=== PATIENT | female | born 1985 | race Caucasian/White ===

== ENCOUNTER → 2019-07-22 14:11 | Outpatient (CLI) | payer OTHER, SELFPAY ==
--- NOTE | 2019-07-22 14:12 | US_ITS ---
PROCEDURE: MM DIG MAMM BI DX W/CAD CLINICAL INDICATION: breast mass Palpable abnormality in the left breast COMPARISON: US BREAST LT COMPLETE from 07/22/2019 TECHNIQUE: Standard CC and MLO images were obtained. R2 CAD reviewed. FINDINGS: Average fibroglandular tissue. No malignant appearing mass or malignant-appearing microcalcification. Specifically, no mammographic abnormality that would correspond to the 2 placed markers in the inferior aspect of the left breast. Left breast ultrasound: At the flava clock region there is a subcutaneous hypoechoic linear area measuring 18 x 2 mm and could represent a subcutaneous abscess/carbuncle the. Please correlate with clinical parameters. No suspicious breast nodules are evident. Small nodes are present in the axilla IMPRESSION: Mammogram is unremarkable. No convincing evidence of malignancy. There is a subcutaneous fluid collection 18 x 2 mm in 5 o'clock region as seen on the ultrasound and could represent a small abscess. Recommend 3 month follow-up ultrasound BI-RAD Category: 2 Benign Finding(s) FOLLOW-UP: 3M 3 Month Follow-up (A letter has been sent to the patient regarding results of the study.) Dictated by: Nik De La Rosa MD 07/27/2019 09:44 Electronically signed by Nik De La Rosa MD in [place] 07/27/2019 09:45
--- NOTE | 2019-07-22 14:17 | US_ITS ---
PROCEDURE: US THYROID CLINICAL INDICATION: enlarged thyroid COMPARISON: No exams were available for comparison FINDINGS: Right lobe: 6.3 x 1.8 x 1.9 cm with homogeneous echogenicity. There is a isoechoic nodule in the lower pole at 15 x 11 mm. There is a thin hypoechoic halo around the nodule. T rads level 3 mildly suspicious. Can be followed. Left lobe: 6 x 2.0 x 2.1 cm. Homogeneous echogenicity. Isthmus: Thickened at 7 mm Additional findings: IMPRESSION: Enlarged thyroid gland with mildly suspicious nodule lower pole on the right. Recommend six-month follow-up Dictated by: Nik De La Rosa MD 07/22/2019 16:59 Electronically signed by Nik De La Rosa MD in [place] 07/22/2019 16:59
== END ==
PROVIDERS: PCP Emergency Medicine; Visit Provider Nurse Practitioner Family
DX: N63.20 Unspecified lump in the left breast, unspecified quadrant (principal); E04.9 Nontoxic goiter, unspecified
CPT/HCPCS: 76536; 76641; 77066

== ENCOUNTER → 2019-08-01 14:26 | Outpatient (CLI) | payer OTHER, SELFPAY ==
[2019-08-01 14:50] LABS: Basophils # 0.1 K/mm3 (0-0.2); Basophils % 1.1 % (0.1-2.0); Eosinophils # 0.3 K/mm3 (0.0-0.4); Eosinophils % 3.8 % (0.1-12.0); Hematocrit 42.7 % (37.0-47.0); Hemoglobin 13.8 g/dL (12.2-16.2); Lymphocytes # 2.2 K/mm3 (0.7-4.5); Mean Corpuscular HGB Conc 32.3 g/dL (31.8-35.4); Mean Corpuscular Hemoglobin 29.2 pg (27.0-31.2); Mean Corpuscular Volume 90.2 fl (81-99); Mean Platelet Volume 8.9 fl (7.4-10.4); Monocytes # 0.5 K/mm3 (0.1-1.0); Monocytes % 5.6 % (1.7-9.3); Neutrophils # 5.1 K/mm3 (1.8-7.8); Neutrophils % 62.6 % (37.0-80.0); Platelet Count 286 K/mm3 (142-424); Red Blood Count 4.73 M/mm3 (4.20-5.40); Red Cell Distribution Width 13.3 % (11.5-17.5); White Blood Count 8.2 K/mm3 (4.8-10.8)
[2019-08-01 16:27] LABS: Alanine Aminotransferase 38 U/L (12-78); Albumin Level 3.7 gm/dL (3.4-5.0); Albumin/Globulin Ratio 1.2 (1.1-1.8); Alkaline Phosphatase 75 U/L (46-116); Aspartate Amino Transferase 26 U/L (15-37); Bilirubin,Total 0.7 mg/dL (0.2-1.0); Blood Urea Nitrogen 12 mg/dL (7-18); Calcium 8.7 mg/dL (8.5-10.1); Carbon Dioxide 25 mmol/L (21.0-32.0); Chloride 105 mmol/L (98-107); Cholesterol 151 mg/dL (140-200); Creatinine,Serum 0.68 mg/dL (0.55-1.02); Estimated Glomerular Filt Rate 100 ml/min (>60); GFR (African American) 121 ML/MIN (>60); Globulin 3.1 gm/dl (1.3-3.2); Glucose 93 mg/dL (74-106); HDL Cholesterol 25 mg/dL (29-89); LDL Cholesterol 76 mg/dL (0-130); Sodium 142 mmol/L (136-145); T4 (Thyroxine) 10.2 ug/dl (4.7-13.3); Thyroid Stimulating Hormone 1.04 uIU/ml (0.358-3.740); Total Protein,Serum 6.8 gm/dL (6.4-8.2); Triglycerides 252 mg/dL (30-200); VLDL Cholesterol 50 mg/dL (0-40)
[2019-08-03 09:35] LABS: Hep A Ab, IgM Negative (Negative); Hepatitis B Core Antibody IgM Negative (Negative); Hepatitis B Surface Antigen Negative (Negative)
[2019-08-03 14:10] LABS: Hepatitis C Antibody <0.1 s/co ratio (0.0-0.9); Vitamin D 25 Hydroxy 11.8 ng/mL (30.0-100.0)
== END ==
PROVIDERS: PCP Nurse Practitioner Family; Visit Provider Nurse Practitioner Family
DX: F41.9 Anxiety disorder, unspecified (principal); E66.9 Obesity, unspecified; R53.83 Other fatigue; Z11.59 Encounter for screening for other viral diseases
CPT/HCPCS: 36415; 80053; 80061; 80074; 82652; 84436; 84443; 85025

== ENCOUNTER → 2019-09-20 15:23 | Outpatient (CLI) | payer OTHER, SELFPAY | PROVIDERS: PCP Nurse Practitioner Family; Visit Provider Otolaryngology | DX: E04.1 Nontoxic single thyroid nodule (principal) ==

== ENCOUNTER → 2019-09-28 17:35 | Outpatient (CLI) | payer OTHER, SELFPAY | PROVIDERS: Visit Provider Nurse Practitioner Family | DX: L98.9 Disorder of the skin and subcutaneous tissue, unspecified (principal) | CPT/HCPCS: 87070; 87077; 87186; 87205 ==

== ENCOUNTER → 2019-10-04 13:00 | Outpatient (CLI) | payer OTHER, SELFPAY ==
--- NOTE | 2019-10-04 13:12 | US_ITS ---
PROCEDURE: US FNA THYROID CLINICAL INDICATION: Dominant solid right thyroid nodule with enlarged thyroid gland COMPARISON: US THYROID from 07/22/2019 FINDINGS: Following obtaining informed consent and time-out procedure under aseptic conditions and local anesthesia with 1 percent buffered lidocaine, 3 passes were made with sonographic guidance with a 21 gauge needle into the solid nodule in the lower pole on the right. The patient tolerated the procedure well without evidence of immediate complications. Cytology: Suspicious for follicular neoplasm IMPRESSION: Uneventful ultrasound-guided fine needle aspiration of right thyroid nodule. 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 Dictated by: Nik De La Rosa MD 10/15/2019 08:03 Electronically signed by Nik De La Rosa MD in [place] 10/15/2019 08:03
== END ==
PROVIDERS: PCP Emergency Medicine; Visit Provider Otolaryngology
DX: E04.1 Nontoxic single thyroid nodule (principal)
CPT/HCPCS: 10005; 76942

== ENCOUNTER → 2019-10-28 08:12 | Outpatient (CLI) | payer OTHER, SELFPAY ==
--- NOTE | 2019-10-28 08:23 | US_ITS ---
PROCEDURE: US BREAST LT COMPLETE CLINICAL INDICATION: abnormal u/s, 3 mth f/u COMPARISON: US BREAST LT COMPLETE from 07/22/2019 FINDINGS: Palpable area once again noted in the lower left breast at the 5-6 o'clock region. This is in the subcutaneous tissues measuring 18 mm in with and 3 mm in thickness. This does contain some low level echoes and could represent complex fluid collection such as a small subcutaneous abscess. Overall, this is not significantly changed There are small nodes in the axilla. Small hyperechoic area noted in the left breast at 12 o'clock at 5 mm and may be due to small lipoma IMPRESSION: Overall no change in the complex collection in the subcutaneous tissues of the lower aspect of the left breast. This could represent a small area of infection/inflammation. Please correlate with clinical parameters Dictated by: Nik De La Rosa MD 11/04/2019 11:14 Electronically signed by Nik De La Rosa MD in [place] 11/04/2019 11:14
== END ==
PROVIDERS: PCP Emergency Medicine; Visit Provider Nurse Practitioner Family
DX: R92.8 Other abnormal and inconclusive findings on diagnostic imaging of breast (principal)
CPT/HCPCS: 76641

== ENCOUNTER → 2019-10-31 14:37 | Outpatient (CLI) | payer OTHER, SELFPAY ==
--- NOTE | 2019-10-31 14:48 | ECG_ITS ---
APPROVED REPORT Exam: Resting ECG HR:70 bpm ECG Measurements Heart Rate 70 AXES LA 142 P 41 QRSd 84 QRS 7 QT 400 T 32 QTc 432 <Conclusion> Normal sinus rhythm Normal ECG Electronically signed by : Sloan Anne, 10/31/2019 18:57:55
[2019-10-31 15:22] LABS: Basophils # 0.1 K/mm3 (0-0.2); Basophils % 1.2 % (0.1-2.0); Eosinophils # 0.3 K/mm3 (0.0-0.4); Eosinophils % 3.6 % (0.1-12.0); Hematocrit 42.7 % (37.0-47.0); Hemoglobin 14.7 g/dL (12.2-16.2); Lymphocytes # 2.2 K/mm3 (0.7-4.5); Lymphocytes % 26.3 % (10-50); Mean Corpuscular HGB Conc 34.3 g/dL (31.8-35.4); Mean Corpuscular Hemoglobin 30.3 pg (27.0-31.2); Mean Corpuscular Volume 88.2 fl (81-99); Monocytes # 0.5 K/mm3 (0.1-1.0); Monocytes % 5.8 % (1.7-9.3); Neutrophils # 5.4 K/mm3 (1.8-7.8); Neutrophils % 63.1 % (37.0-80.0); Platelet Count 284 K/mm3 (142-424); Red Blood Count 4.84 M/mm3 (4.20-5.40); Red Cell Distribution Width 13.1 % (11.5-17.5); White Blood Count 8.5 K/mm3 (4.8-10.8)
[2019-10-31 17:01] LABS: Urine Pregnancy, HCG Qual. Negative (Negative)
== END ==
PROVIDERS: PCP Emergency Medicine; Visit Provider Otolaryngology
DX: Z01.818 Encounter for other preprocedural examination (principal); E04.1 Nontoxic single thyroid nodule
CPT/HCPCS: 36415; 81025; 85025; 93005

== ENCOUNTER 2019-11-03 06:50 | Observation (INO) ==
--- NOTE | 2019-11-03 07:26 | Progress Note ---
[facility] Anesthesia Checklist - Patient Identification Patient Identification: Arm Band, Verbal (Name & ) - Structural Data Admitted From: Home Planned Operative Procedure/s: thyroid Consent for Planned Operative Procedure(s) Verified: Yes Verified Documents: History and Physical - NPO Status Verified Time NPO: 00:00 - Chart Verification Results Verified: CBC, BMP - Additional verifications Patient : No Anesthesia Reactions: No Hx Blood Transfusions: No Blood Transfusion Reaction: No Cephalosporin Allergy: No Previous Colonoscopy: No - Cardiovascular Assessment Heart Sounds: S1 & S2 Pulse Strength: Baseline Pulse Rhythm: Regular Peripheral Edema: No - Airway Assessment C-Spine Mobility Assessed: Yes TMJ Mobility Assessed: Yes Dentition: Good Dentition - Neurological Assessment Level of Consciousness: Awake, Alert, Appropriate Hx Seizures: No Numbness or tingling in extremities: No - Anesthesia Plan Anesthesia Risk discussed: Yes Anesthesia Plan: Verified ASA Class: II Anesthesia Type: General [facility] History I have reviewed the patient's past medical history: Yes Medical History: Reports:: Anxiety, Depression, Gastroesophageal Reflux Disease(GERD) Denies:: Cancer, Diabetes Mellitus Type 1, Diabetes Mellitus Type 2, Internal Pacemaker, MRSA *Have you ever received a pneumonia vaccine?: No *Have you received a flu vaccine this season?: No Other Medical History: Reports: Other Anesthesia experience/problems:: none Other Surgeries: Yes: Colonoscopy, (x 4), EGD. No: Pacemaker Amputation: No Fractures: No - *Social History Smoking Status: Current every day smoker Tobacco Type: cigarettes # Packs/Day (cigarettes): 1 Alcohol Intake: never Substance Use Type: denies use *Occupational Status:: other Housing: apartment Household Members: spouse *Travel in the last 8 weeks: None - Psychiatric History Pschychiatric History:: Reports:: Anxiety, Depression Family Hx:: Cancer, Coronary Artery Disease, Diabetes, Hypertension
--- NOTE | 2019-11-03 11:37 | Progress Note ---
[facility] Anesthesia Record Part I Intake, IV Amount: 2,000 Estimated blood loss (mL): 20 Urine output (mL): 0 (NM) Blood Products used (#): none Blood Pressure: 124/70 SaO2: 94 Pulse Rate: 107 Respiratory Rate: 18 Temperature: 97 F Patient is:: Drowsy, Mask O2, Stable Stable to PACU at:: 11:30
--- NOTE | 2019-11-03 12:59 | Operative Note ---
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 An extended thyroid incision was marked out because of the very obese neck. Skin and subcutaneous tissue and platysma were incised, the strap muscles were identified on each side and divided. The sternomastoid muscles were identified on each side and retracted. There was a very large lump involving the right lobe of the thyroid and extending substernally as well as superiorly to the level of the mandible and deeply into the prevertebral space. Dissection was commenced superiorly and the superior vascular pedicle on the right side was doubly ligated and divided. The right superior parathyroid gland was identified and retained in situ. The middle thyroid vein was then divided as was the inferior thyroid veins and they were all ligated prior to division. The gland extended substernally and using blunt mobilization techniques it was mobilized and brought up into the neck. When that was done the right inferior thyroid artery was identified as well as the right recurrent laryngeal nerve. The nerve was stimulated in a positive fashion on several occasions and followed through to where it entered the cricothyroid membrane of the larynx. Vipin's ligament was then divided and the right thyroid mass was from the trachea. Trachea was moderately displaced to the right but once the mass was mobilized the trachea return to the midline. The isthmus was carried with the right lobe and the specimen was transected along the medial aspect of the left lobe. The left lobe was oversewn with 2-0 Vicryl at the site of resection. 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 The wound was thoroughly irrigated all of the bleeding was stopped blood loss was less than 20 cc. Surgicel snow was placed in the depths of the resection. The strap muscles were repaired with 2-0 Vicryl the subcutaneous layer platysma was repaired with 2-0 Vicryl as well. A 10 mm Sammy-Degroot drain was placed in the subcutaneous layer and hooked to suction. The skin was Dermabonded and a dressing was applied. Patient was sent to recovery in good general condition. Condition: stable Disposition: PACU Complications:: none
--- NOTE | 2019-11-03 14:15 | Pharmacy Consult Notes ---
[facility] Pharmacy VTE Monitoring - Patient Demographics Admission date: 11/03/19 Report Date: 11/03/19 Time: 14:15 Allergies/Adverse Reactions: Patient Allergies promethazine [From [facility]] Allergy (Mild, Verified 10/18/19 14:33) PT REPORTS IT MAKES HER SICK Height: 1.7 m Weight: 108.947 kg - VTE Risk VTE Score: 3 VTE Risk Level: Low Risk - Prophylaxis VTE Prophylaxis Ordered?: Yes Types of VTE Prophylaxis: TEDS Knee High Location of Applied Device: Bilateral Lower Extremeties
--- NOTE | 2019-11-04 08:45 | Progress Note ---
[facility] Anesthesia Record Part II Discharge Time: 13:30 Destination: Medical Surgical Department PACU nurse assessment reviewed?: Yes Patient Condition:: Good Anesthesia Complications:: None Swallowing reflex intact?: Yes Cyanosis?: No Blood Pressure: 118/71 Pulse Rate: 117 Temperature: 98.3 F Mental Status: Alert & Oriented Pain level:: 5 Nausea and/or vomitting:: None Intake, IV Amount: 0 Comments:: RR 16, O2sat 95% on 2 L NC
--- NOTE | 2019-11-04 10:15 | Discharge Summary ---
General - General Admission date:: 11/03/19 Discharge date: 11/04/19 HPI HPI: This patient was admitted on November 03, 2019 after having a total right thyroid lobectomy including substernal portion cervical approach due to a right thyroid neoplasm extending substernally due to atypical cells on fine-needle biopsy. Patient tolerated the surgery well and was admitted overnight for observation. Hospital Course Hospital Course: Patient was stable overnight following a total right thyroid lobectomy including substernal portion cervical approach. Patient pain was tolerated with medication IV and p.o. Patient will be discharged this morning. Drain was removed this a.m. atraumatically. Dressing was reapplied Telfa /Tegaderm. Objective Vital signs: Temp Pulse Resp BP Pulse Ox 98.3 F 117 H 18 118/71 95 11/04/19 08:45 11/04/19 08:45 11/04/19 08:00 11/04/19 08:45 11/04/19 08:00 - *Routine HEENT Exam ENT: Present: mucous membranes moist Comments: Dressing to lower neck thyroid area where right thyroid lobectomy was completed. No bleeding noted. Results Labs on day of discharge: Labs from last 24 hours 11/04/19 08:38 Calcium 9.6 DS: Diagnosis - Discharge Diagnosis (1) Status post thyroidectomy Status: Acute Discharge Plan - Patient Discharge Instructions ACTIVITY: Limited activity DIET: advance to your usual diet - Follow up Plan Follow up with: Jd Lazar MD [Staff Physician] - Unknown provider or service follow up:: 11/10/19 at 1230pm Disposition: Home, Self-Skilled Nursing Medications: Home Medications Medication Instructions Recorded Confirmed Type Ergocalciferol (Vitamin D2) 50,000 unit PO WEEKLY 11/03/19 11/03/19 History [Drisdol] Omeprazole [Omeprazole 20mg Tab] 20 mg PO DAILYP PRN 11/03/19 11/03/19 History Venlafaxine HCl [Venlafaxine HCl 37.5 mg PO DAILY 11/03/19 11/03/19 History ER] Calcium Carbonate/Vitamin D3 500 mg PO BID 14 Days #28 tab 11/04/19 Rx [Oscal +D 500mg Tab] Hydrocod/Acet 5/325 mg [[place] 1 tab PO Q6HP PRN #20 tab 11/04/19 Rx 5/325mg tablet] Levothyroxine Sodium [Synthroid 125 mcg PO DAILYDM #30 tab 11/04/19 Rx 125mcg (0.125mg) tablet] Prescriptions/Medication Reconciliation: New Venlafaxine HCl [Effexor 37.5mg tablet] 37.5 mg PO DAILY tablet Hydrocod/Acet 5/325 mg [[place] 5/325mg tablet] 1 tab PO Q6HP PRN #20 tab PRN Reason: Mild Pain Calcium Carbonate/Vitamin D3 [Oscal +D 500mg Tab] 500 mg PO BID 14 Days #28 tab Levothyroxine Sodium [Synthroid 125mcg (0.125mg) tablet] 125 mcg PO DAILYDM #30 tab Continued Ergocalciferol (Vitamin D2) [Drisdol] 50,000 unit PO WEEKLY Venlafaxine HCl [Venlafaxine HCl ER] 37.5 mg PO DAILY Omeprazole [Omeprazole 20mg Tab] 20 mg PO DAILYP PRN PRN Reason: Heartburn - Problem Reconciliation Problems Reviewed?: Yes
== END 2019-11-04 11:37 | disposition home or self-care (01) ==
LOC: 2ND 06:50 → OR 06:50
PROVIDERS: ADMIT Otolaryngology; ATTEND Otolaryngology
CPT/HCPCS: 82310; 96374; 96375; G0378; J2405

== ENCOUNTER → 2019-12-29 13:32 | Outpatient (CLI) | payer OTHER, SELFPAY ==
[2019-12-29 13:37] LABS: MANUAL DIFFERENTIAL MANUAL DIFFERENTIAL (MANUAL DIFF)
--- NOTE | 2019-12-29 13:44 | XR_ITS ---
PROCEDURE: XR CHEST 2V CLINICAL HISTORY: dysphag Dysphagia COMPARISON: No exams were available for comparison FINDINGS: The cardiomediastinal silhouette and pulmonary vascularity are within normal limits. The lungs are clear without infiltrates, suspicious nodules, or pleural effusions. There is calcified granuloma in the right upper lobe. No acute bony findings. IMPRESSION: No acute findings. Dictated by: Nik De La Rosa MD 12/29/2019 14:21 Electronically signed by Nik De La Rosa MD in [place] 12/29/2019 14:21
[2019-12-29 14:17] LABS: Basophils % 0.5 % (0.1-2.0); Eosinophils # 0.3 K/mm3 (0.0-0.4); Hemoglobin 13.8 g/dL (12.2-16.2); Lymphocytes # 2.3 K/mm3 (0.7-4.5); Lymphocytes % 28.8 % (10-50); Mean Corpuscular HGB Conc 34.5 g/dL (31.8-35.4); Mean Corpuscular Hemoglobin 29.7 pg (27.0-31.2); Monocytes # 0.5 K/mm3 (0.1-1.0); Monocytes % 6.2 % (1.7-9.3); Neutrophils # 4.8 K/mm3 (1.8-7.8); Neutrophils % 60.4 % (37.0-80.0); Platelet Count 266 K/mm3 (142-424); Red Blood Count 4.65 M/mm3 (4.20-5.40); Red Cell Distribution Width 13.2 % (11.5-17.5)
[2019-12-29 14:51] LABS: Free T4 (Free Thyroxine) 1.09 ng/dl (0.78-2.19)
[2019-12-29 15:05] LABS: Thyroid Stimulating Hormone 2.72 uIU/mL (0.465-4.68)
[2019-12-29 18:29] LABS: Eosinophils % 1 % (0-3); Lymphocytes % 37 % (10-50); Monocytes % 6 % (2-9); Neutrophils % 56 % (42-76); Platelet Estimate Normal; RBC Morphology Normal; Total Cells Counted 100
== END ==
PROVIDERS: Visit Provider Otolaryngology
DX: D49.7 Neoplasm of unspecified behavior of endocrine glands and other parts of nervous system (principal); J35.8 Other chronic diseases of tonsils and adenoids; Z98.890 Other specified postprocedural states
CPT/HCPCS: 36415; 71046; 84439; 84443; 85007; 85014; 85018; 85048; 85049

== ENCOUNTER → 2020-01-13 14:45 | Outpatient (CLI) | payer OTHER, SELFPAY ==
--- NOTE | 2020-01-13 14:45 | US_ITS ---
PROCEDURE: US THYROID CLINICAL INDICATION: post thyroidectomy Choking COMPARISON: US THYROID from 07/22/2019 FINDINGS: Right lobe: Prior right thyroidectomy Left lobe: The left lobe measures 4.4 x 2.5 x 1.7 cm. There is a vague area of decreased echogenicity in the mid mid aspect of the left lobe however, no discrete margins are evident. Isthmus: There is heterogeneous echogenicity noted in the region of the isthmus and may be postsurgical changes. Additional findings: IMPRESSION: Prior right thyroidectomy. There is some vague decreased echogenicity in the mid aspect of the left lobe but no discrete margins are apparent. Recommend six-month follow-up to confirm stability. Dictated by: Nik De La Rosa MD 01/13/2020 20:55 Electronically signed by Nik De La Rosa MD in [place] 01/13/2020 20:55
== END ==
PROVIDERS: PCP Emergency Medicine; Visit Provider Otolaryngology
DX: D49.7 Neoplasm of unspecified behavior of endocrine glands and other parts of nervous system (principal); J35.8 Other chronic diseases of tonsils and adenoids; Z98.890 Other specified postprocedural states
CPT/HCPCS: 76536

== ENCOUNTER → 2020-07-09 14:37 | Outpatient (CLI) | payer OTHER, SELFPAY ==
--- NOTE | 2020-07-09 14:37 | XR_ITS ---
PROCEDURE: XR CHEST 2V CLINICAL HISTORY: granuloma of lung COMPARISON: CR XR CHEST 2V from 12/29/2019 FINDINGS: The cardiomediastinal silhouette and pulmonary vascularity are within normal limits. No lobar consolidation or collapse. There is a calcified granuloma in the right upper lobe laterally not significantly changed. Skin fold artifact is present on both sides. No acute bony abnormalities. IMPRESSION: No change with no acute finding Dictated by: Nik De La Rosa MD 07/09/2020 15:51 Nik De La Rosa MD in [place] 07/09/2020 15:51
--- NOTE | 2020-07-09 14:37 | US_ITS ---
PROCEDURE: US THYROID CLINICAL INDICATION: hx thyroidectomy Follow-up left thyroid nodule COMPARISON: US US THYROID from 01/13/2020 FINDINGS: There has been a prior right thyroidectomy. The left lobe is 5 x 1.8 x 2.4 cm. There is heterogeneous echogenicity of the left lobe of the thyroid gland as previously described. No discrete nodule is evident. IMPRESSION: Overall no change status post prior right thyroidectomy with heterogeneous echogenicity of the left lobe without discrete nodule. Dictated by: Nik De La Rosa MD 07/10/2020 06:32 Nik De La Rosa MD in [place] 07/10/2020 06:32
== END ==
PROVIDERS: PCP Emergency Medicine; Visit Provider Otolaryngology
DX: E03.9 Hypothyroidism, unspecified (principal); J84.10 Pulmonary fibrosis, unspecified; Z98.890 Other specified postprocedural states
CPT/HCPCS: 71046; 76536

== ENCOUNTER → 2020-10-05 11:22 | Outpatient (CLI) | payer OTHER, SELFPAY ==
--- NOTE | 2020-10-05 11:27 | XR_ITS ---
PROCEDURE: XR LUMBAR SPINE 2-3V CLINICAL INDICATION: back pain COMPARISON: No exams were available for comparison FINDINGS: No fracture or dislocation. No lytic or blastic change. There is normal mineralization. The disc spaces are well-preserved. No significant degenerative/arthritic changes. No erosive changes evident. Other findings:None. IMPRESSION: Negative lumbar spine Dictated by: Nik De La Rosa MD 10/05/2020 12:11 Nik De La Rosa MD in [place] 10/05/2020 12:11
[2020-10-05 14:11] LABS: Basophils # 0.1 K/mm3 (0-0.2); Basophils % 0.9 % (0.1-2.0); Eosinophils # 0.3 K/mm3 (0.0-0.4); Eosinophils % 3.5 % (0.1-12.0); Hematocrit 43.4 % (37.0-47.0); Hemoglobin 13.9 g/dL (12.2-16.2); Lymphocytes # 2.2 K/mm3 (0.7-4.5); Lymphocytes % 24.5 % (10-50); Mean Corpuscular HGB Conc 32.1 g/dL (31.8-35.4); Mean Corpuscular Hemoglobin 29.2 pg (27.0-31.2); Mean Corpuscular Volume 90.9 fl (81-99); Mean Platelet Volume 9.8 fl (7.4-10.4); Monocytes # 0.5 K/mm3 (0.1-1.0); Monocytes % 5.3 % (1.7-9.3); Neutrophils # 5.9 K/mm3 (1.8-7.8); Neutrophils % 65.8 % (37.0-80.0); Platelet Count 265 K/mm3 (142-424); Red Blood Count 4.77 M/mm3 (4.20-5.40); Red Cell Distribution Width 13.5 % (11.5-17.5)
[2020-10-05 14:18] LABS: Alanine Aminotransferase 30 U/L (12-78); Albumin Level 4.1 g/dl (3.5-5.0); Albumin/Globulin Ratio 1.4 (1.1-1.8); Alkaline Phosphatase 68 U/L (38-126); Anion Gap 12.4 mEq/L (5-15); Aspartate Amino Transferase 27 U/L (14-36); Bilirubin,Total 0.7 mg/dl (0.2-1.3); Blood Urea Nitrogen 10 mg/dl (7-17); Calcium 9.2 mg/dl (8.4-10.2); Carbon Dioxide 26 mmol/L (22.0-30.0); Chloride 106 mmol/L (98-107); Chol/HDL Ratio 5.6 (1-3.5); Cholesterol 135 mg/dl (140-200); Estimated Glomerular Filt Rate 115 ml/min (>60); GFR (African American) 139 ML/MIN (>60); Globulin 2.9 g/dL (1.3-3.2); Glucose 108 mg/dl (74-100); HDL Cholesterol 24 mg/dl (40-60); Potassium 4.4 mmoL/L (3.5-5.1); Sodium 140 mmol/L (136-145); Triglycerides 178 mg/dl (30-150); VLDL Cholesterol 36 mg/dL (0-40)
[2020-10-05 14:29] LABS: Direct LDL Cholesterol 88.86 mg/dL (100-129)
[2020-10-05 14:33] LABS: T4 (Thyroxine) 11.7 ug/dl (5.53-11.0)
[2020-10-05 14:34] LABS: Hemoglobin A1C 5.2 % (4.0-6.0)
[2020-10-05 14:35] LABS: 25-OH Vitamin D, Total < 12.8 ng/mL (30-100)
[2020-10-05 14:47] LABS: Thyroid Stimulating Hormone 1.19 uIU/mL (0.465-4.68)
[2020-10-05 15:06] LABS: Vitamin B12 234 pg/mL (239-931)
[2020-10-08 12:23] LABS: Anti-Centromere B Antibodies <0.2 AI (0.0-0.9); Anti-Jo-1 <0.2 AI (0.0-0.9); Anti-Smith Antibody <0.2 AI (0.0-0.9); Antichromatin Antibodies <0.2 AI (0.0-0.9); Antiscleroderma-70 Antibodies <0.2 AI (0.0-0.9); RNP Antibodies <0.2 AI (0.0-0.9); Sjogren's Anti-SS-A <0.2 AI (0.0-0.9); Sjogren's Anti-SS-B <0.2 AI (0.0-0.9)
[2020-10-08 19:26] LABS: Anti-DNA (DS) Ab Qn 1 IU/mL (0-9)
[2020-10-27 06:39] LABS: APTT 24.1 sec (.); Anti-Cardiolipin Antibody IgG <10 GPL (.); Anti-Cardiolipin Antibody IgM 16 MPL (.); Beta-2 Glycoprotein I Ab, IgA <10 SAU (.); Beta-2 Glycoprotein I Ab, IgG <10 SGU (.); Beta-2 Glycoprotein I Ab, IgM <10 SMU (.); Hexagonal Phase Phospholipid 0 sec (.); Prothrombin Time 10.2 sec (.); Thrombin Time 16.4 sec (.)
== END ==
PROVIDERS: PCP Nurse Practitioner Family; Visit Provider Nurse Practitioner Family
DX: M54.5 Low back pain (principal); G89.29 Other chronic pain; R20.2 Paresthesia of skin; R20.0 Anesthesia of skin; R53.83 Other fatigue; F41.9 Anxiety disorder, unspecified
CPT/HCPCS: 36415; 72100; 80053; 80061; 82306; 82607; 83036; 84436; 84443; 85025; 85597; 85598; 85610; 85613; 85670; 85730; 86146; 86147; 86225; 86235

== ENCOUNTER → 2021-04-02 14:02 | Outpatient (CLI) | payer OTHER, SELFPAY ==
[2021-04-02 15:00] LABS: HCG,Quantitative < 2 mIU/ml (0-5.42)
== END ==
PROVIDERS: Visit Provider Obstetrics & Gynecology
DX: Z34.90 Encounter for supervision of normal pregnancy, unspecified, unspecified trimester (principal)
CPT/HCPCS: 36415; 84702

== ENCOUNTER → 2021-08-26 15:27 | Outpatient (CLI) | payer OTHER, SELFPAY ==
[2021-08-26 15:58] LABS: Basophils # 0.2 K/mm3 (0-0.2); Basophils % 1.8 % (0.1-2.0); Eosinophils # 0.3 K/mm3 (0.0-0.4); Eosinophils % 3.2 % (0.1-12.0); Hematocrit 44.4 % (37.0-47.0); Hemoglobin 14.5 g/dL (12.2-16.2); Lymphocytes # 2.5 K/mm3 (0.7-4.5); Lymphocytes % 25.3 % (10-50); Mean Corpuscular HGB Conc 32.6 g/dL (31.8-35.4); Mean Corpuscular Hemoglobin 29.9 pg (27.0-31.2); Mean Corpuscular Volume 91.7 fl (81-99); Mean Platelet Volume 9.4 fl (7.4-10.4); Monocytes # 0.4 K/mm3 (0.1-1.0); Monocytes % 3.7 % (1.7-9.3); Neutrophils # 6.5 K/mm3 (1.8-7.8); Platelet Count 324 K/mm3 (142-424); Red Blood Count 4.85 M/mm3 (4.20-5.40); Red Cell Distribution Width 13.4 % (11.5-17.5); White Blood Count 9.8 K/mm3 (4.8-10.8)
[2021-08-26 16:44] LABS: Alanine Aminotransferase 52 U/L (12-78); Albumin Level 4.2 g/dl (3.5-5.0); Albumin/Globulin Ratio 1.6 (1.1-1.8); Alkaline Phosphatase 72 U/L (38-126); Aspartate Amino Transferase 38 U/L (14-36); Bilirubin,Total 0.3 mg/dl (0.2-1.3); Blood Urea Nitrogen 11 mg/dl (7-17); Calcium 9.4 mg/dl (8.4-10.2); Carbon Dioxide 24 mmol/L (22.0-30.0); Chloride 103 mmol/L (98-107); Estimated Glomerular Filt Rate 114 ml/min (>60); GFR (African American) 138 ML/MIN (>60); Globulin 2.7 g/dL (1.3-3.2); Glucose 122 mg/dl (74-100); Sodium 138 mmol/L (136-145); Total Protein,Serum 6.9 g/dl (6.3-8.2)
[2021-08-26 17:04] LABS: 25-OH Vitamin D, Total 15.6 ng/mL (30-100)
[2021-08-26 17:05] LABS: T4 (Thyroxine) 9.7 ug/dl (5.53-11.0)
[2021-08-26 17:18] LABS: Thyroid Stimulating Hormone 2.25 uIU/mL (0.465-4.68)
[2021-08-26 20:30] LABS: Hemoglobin A1C 5.3 % (4.0-6.0)
== END ==
PROVIDERS: PCP Nurse Practitioner Family; Visit Provider Nurse Practitioner Family
DX: I49.9 Cardiac arrhythmia, unspecified (principal); E03.9 Hypothyroidism, unspecified; E55.9 Vitamin D deficiency, unspecified; K21.9 Gastro-esophageal reflux disease without esophagitis; Z98.890 Other specified postprocedural states
CPT/HCPCS: 36415; 80053; 82306; 83036; 84436; 84443; 85025; 93225; 93226

== ENCOUNTER → 2021-09-04 13:08 | Outpatient (CLI) | payer OTHER, SELFPAY ==
--- NOTE | 2021-09-04 13:08 | CA_ITS ---
APPROVED REPORT EXAM: Comprehensive 2D, Doppler, and color-flow Echocardiogram Stoper: Ashely Boateng CRT Ht: 5 ft 7 in Wt: 254lbs BSA: 2.24 BP: 135/80 mmHg Indications: Chest Pain, Arrhythmia, Shortness of Breath, Obesity, Palpitations 2D Dimensions LVOT 2.00 cm (M/F) 1.5-2.5 LA Volume 33.50 mL LA Volume Index 15.00 mL/m2 (M/F) 16-34 M-Mode Dimensions RVDd 2.40 cm (0.9-2.6) LA Diam 3.26 cm (1.9-4.0) LVDd 4.47 cm (3.5-5.7) Ao Diam 3.51 cm (2.0-3.7) LVDs 2.90 cm (3.5-5.7) IVSd 1.40 cm (0.6-1.1) PWd 0.64 cm (0.6-1.1) EF (Teich) 64.60% FS 35.10% EDV (Teich) 91.00 mL TAPSE 2.13 (<1.7) ESV (Teich) 32.20 mL LV Diastology E Decel Time 213.00 (160-240 msec) E/A Ratio 0.63 MED E' 8.60 (< 7 cm/sec) MED A' 12.10 cm/s E'/MED E' Ratio 7.06 (>14) LAT E' 14.20 (<10 cm/sec) LAT A' 13.50 cm/s E/LAT E' Ratio 4.27 (>14) Aortic Valve AO Peak GR. 10.00 mmHg Mitral Valve MV E Max Rickie. 61.00 (40-130 cm/s) MV A Velocity 96.00 (40-130 cm/s) E/A Ratio 0.63 MV Decel. Time 213.00 (160-240 ms) MV PHT 62.00 ms Pulmonary Valve PV Peak Velocity 110.00 (50-150 cm/s) Tricuspid Valve TR P. Velocity 174.00 cm/s RAP Estimate 10.00 mmHg RVSP 22.20 mmHg Left Ventricle Left atrium is qualitatively mildly enlarged, left ventricle is normal size, left ventricle wall thickness is upper limit of normal, there is preserved left ventricular systolic function, visually estimated ejection fraction 55% with no regional wall motion abnormality, Doppler evidence of impaired LV relaxation seen. Right Ventricle Right atrium and right ventricle are normal size and contractility. Aortic Valve Aortic valve is grossly normal, there is no aortic stenosis or aortic insufficiency. Mitral Valve Mitral valve grossly normal, there is trace mitral regurgitation. Tricuspid Valve Tricuspid grossly normal, there is trace tricuspid regurgitation, tricuspid rotation jet velocity for calculation of the right ventricular systolic pressure. Pulmonic Valve Pulmonic valve is poorly visualized. Great Vessels Aortic root is normal size. Inferior vena cava is poorly visualized. Pericardium No significant pericardial effusion noted. Conclusion 1. Normal left ventricular size, visually estimated ejection fraction 55% with no regional wall motion abnormality, Doppler evidence of impaired relaxation. 2. Trace mitral and tricuspid regurgitation. 3. No significant pericardial effusion noted. 4. Inferior vena cava is poorly visualized. Electronically signed by : Jourdan Oleary MD 09/04/2021 18:58:50
--- NOTE | 2021-09-04 13:08 | CA_ITS ---
APPROVED REPORT Exam: Exercise Treadmill Technologist: Marcella Fitzpatrick, Ht: 5 ft 7 in Wt: 254 lbs BSA: 2.24 m2 HR: 103 bpm BP: 137/70 mmHg Indications: CP Medical History Medications: Levothyroxine,,,,, Nexium,,,,, Stress Test Details Test: Kenn HR Resting HR: 109 bpm Max Heart Rate (APMHR): 186.827958 bpm Max HR Achieved: 164 bpm Target HR (85% APMHR): 158.938551 bpm % of APMHR: 88.17 Recovery HR: 120 bpm BP Resting BP: 140/88 mmHg Max BP: 158/90 mmHg Recovery BP: 148.0/92.0 mmHg ECG Resting ECG: Sinus tach, PVCs Clinical Exercise duration: 07:12 min Highest Stage Achieved: Exercise capacity: 10.1 METs Stress ECG Conclusion Exercised 7:12 on Kenn Protocol Max HR: 164 % of PM: 88% Max BP: 158/90 METs: 10.1 Test stopped due to: SOA, Fatigue Symptoms: No CP. Marked dyspnea at peak exercise & dizziness caused the patient increased anxiety. Arrhythmias/Ectopy: Frequent PVCs during pretest & recovery. Frequency of PVCs diminished during exercise. One V. couplet during exercise & recovery. ST-T Changes: Normal ST response to exercise. Conclusion: Frequent V. ectopy which diminished with exercise. Otherwise normal GXT. GXT only. Test Summary REST . . . . . . . Standing REST 04:05 0.0 0.0 109 . 140/ 88 . . Stage 1 01:00 10.0 1.7 125 . . . . Stage 1 02:00 10.0 1.7 135 . . . . Stage 1 03:00 10.0 1.7 136 . 140/ 82 . . Stage 2 01:00 12.0 2.5 143 . . . . Stage 2 02:00 12.0 2.5 144 . . . . Stage 2 03:00 12.0 2.5 150 . 158/ 90 . . Stage 3 01:00 14.0 3.4 160 . . . . Stage 3 01:12 14.0 3.4 164 . . . Stop exercise at 07:12 RECOVERY 01:00 0.0 0.0 149 . . . . RECOVERY 02:00 0.0 0.0 133 . . . . RECOVERY 03:00 0.0 0.0 130 . . . . RECOVERY 04:00 0.0 0.0 123 . 156/ 92 . . RECOVERY 05:00 0.0 0.0 121 . 156/ 92 . . RECOVERY 06:00 0.0 0.0 126 . 146/ 96 . . RECOVERY 07:00 0.0 0.0 120 . 146/ 96 . . RECOVERY 07:31 0.0 0.0 124 . 148/ 92 . . Electronically signed by : Jourdan Oleary MD 09/04/2021 18:47:39
== END ==
PROVIDERS: PCP Nurse Practitioner Family; Visit Provider Urology
DX: R07.89 Other chest pain (principal); R00.2 Palpitations; I49.3 Ventricular premature depolarization; I49.9 Cardiac arrhythmia, unspecified; E89.0 Postprocedural hypothyroidism; F41.9 Anxiety disorder, unspecified; F17.200 Nicotine dependence, unspecified, uncomplicated; K21.9 Gastro-esophageal reflux disease without esophagitis; E66.9 Obesity, unspecified; Z68.39 Body mass index [BMI] 39.0-39.9, adult
CPT/HCPCS: 93017; 93306

== ENCOUNTER → 2021-09-11 18:28 | Outpatient (CLI) | payer OTHER, SELFPAY | PROVIDERS: Visit Provider Nurse Practitioner Family | DX: U07.1 COVID-19 (principal) | CPT/HCPCS: C9803; U0003; U0005 ==

== ENCOUNTER → 2021-09-19 14:28 | Outpatient (CLI) | payer OTHER, SELFPAY | PROVIDERS: PCP Nurse Practitioner Family; Visit Provider Urology | DX: G47.33 Obstructive sleep apnea (adult) (pediatric) (principal); R06.00 Dyspnea, unspecified; R40.0 Somnolence; R06.83 Snoring; R53.83 Other fatigue; I49.3 Ventricular premature depolarization; K21.9 Gastro-esophageal reflux disease without esophagitis | CPT/HCPCS: 95806 ==

== ENCOUNTER → 2021-10-28 16:32 | Outpatient (CLI) | payer OTHER, SELFPAY ==
--- NOTE | 2021-10-28 16:42 | XR_ITS ---
PROCEDURE INFORMATION: Exam: XR Chest Exam date and time: 10/28/2021 4:42 PM Age: 36 years old Clinical indication: Shortness of breath; Additional info: SOB TECHNIQUE: Imaging protocol: XR of the chest. Views: 2 views. COMPARISON: CR XR CHEST 2V 07/09/2020 3:37 PM FINDINGS: Lungs: Right upper lobe granuloma is unchanged. No consolidation. Pleural spaces: Unremarkable. No pleural effusion. No pneumothorax. Heart/Mediastinum: Unremarkable. No cardiomegaly. Bones/joints: Unremarkable. IMPRESSION: No acute findings.
[2021-10-28 18:21] LABS: D-Dimer 0.49 ug/mL (0.0-0.5)
[2021-11-01 19:18] LABS: D001-IgE D pteronyssinus 1.01 kU/L (Class II); D002-IgE D farinae 0.32 kU/L (Class I); E001-IgE Cat Dander <0.10 kU/L (Class 0); E005-IgE Dog Dander <0.10 kU/L (Class 0); E072-IgE Mouse Urine <0.10 kU/L (Class 0); G002-IgE Bermuda Grass <0.10 kU/L (Class 0); G006-IgE Timothy Grass <0.10 kU/L (Class 0); I006-IgE Cockroach, German <0.10 kU/L (Class 0); Immunoglobulin E, Total 103 IU/mL (6-495); M001-IgE Penicillium chrysogen <0.10 kU/L (Class 0); M002-IgE Cladosporium herbarum <0.10 kU/L (Class 0); M003-IgE Aspergillus fumigatus <0.10 kU/L (Class 0); M006-IgE Alternaria alternata <0.10 kU/L (Class 0); T001-IgE Maple/Box Elder <0.10 kU/L (Class 0); T003-IgE Common Silver Birch <0.10 kU/L (Class 0); T006-IgE Cedar, Mountain <0.10 kU/L (Class 0); T007-IgE Oak, White <0.10 kU/L (Class 0); T008-IgE Elm, American <0.10 kU/L (Class 0); T010-IgE Walnut <0.10 kU/L (Class 0); T011-IgE Maple Leaf Sycamore <0.10 kU/L (Class 0); T014-IgE Cottonwood <0.10 kU/L (Class 0); T015-IgE Ash, White <0.10 kU/L (Class 0); T022-IgE Pecan, Hickory <0.10 kU/L (Class 0); T070-IgE White Mulberry <0.10 kU/L (Class 0); W001-IgE Ragweed, Short <0.10 kU/L (Class 0); W011-IgE Thistle, Russian <0.10 kU/L (Class 0); W014-IgE Pigweed, Common <0.10 kU/L (Class 0); W018-IgE Sheep Sorrel <0.10 kU/L (Class 0)
== END ==
PROVIDERS: PCP Nurse Practitioner Family; Visit Provider Internal Medicine Pulmonary Disease
DX: R06.02 Shortness of breath (principal)
CPT/HCPCS: 71046; 82785; 85378; 86003

== ENCOUNTER → 2021-12-04 12:46 | Outpatient (CLI) | payer OTHER, SELFPAY | PROVIDERS: PCP Nurse Practitioner Family; Visit Provider Internal Medicine Pulmonary Disease | DX: R06.00 Dyspnea, unspecified (principal) | CPT/HCPCS: 94060; 94618; 94726; 94729 ==

== ENCOUNTER → 2022-02-20 14:07 | Outpatient (CLI) | payer OTHER, SELFPAY ==
--- NOTE | 2022-02-20 14:08 | MM_ITS ---
PROCEDURE INFORMATION: Exam: US Right Breast, Complete MG Bilateral Diagnostic Breast Tomosynthesis Exam date and time: 02/20/2022 3:09 PM Age: 36 years old Clinical indication: Right breast palpable lump; outer lower quadrant TECHNIQUE: Imaging protocol: Complete ultrasound of all four quadrants of the Right breast and the retroareolar regions, including ultrasound of the axilla when performed. Bilateral Diagnostic tomosynthesis and 2D mammography including computer-aided detection (CAD) when performed. Unilateral or bilateral exam. COMPARISON: MG MM DIG MAMM BI DX W/CAD 02/20/2022 2:07 PM FINDINGS: MAMMOGRAPHY: The breast tissue is composed of scattered areas of fibroglandular density. There is no stellate mass, architectural distortion or suspicious microcalcifications in either breast to suggest malignancy. Spot compression views the right approximate 8 o'clock axis where the patient reports a palpable abnormality does not demonstrate any suspicious findings. No skin thickening or axillary adenopathy. ULTRASOUND: Sonographic images of the right breast including the retroareolar region, all 4 quadrants and the axilla do not demonstrate any solid or cystic masses within the breast parenchyma. The palpable abnormality in the right 8 o'clock axis 6 cm from the nipple corresponds to a cutaneous hypoechoic mass measuring 2.9 x 0.4 cm in dimension. Its slight margin irregularity and heterogeneous internal architecture are suggestive of an inflamed sebaceous cyst. Underlying infection cannot be excluded on radiographic images. Clinical correlation is needed.No architectural distortion or acoustical shadowing. No skin thickening or axillary adenopathy. IMPRESSION: 1. No mammographic or sonographic evidence of malignancy. Palpable abnormality in the right breast corresponds to a cutaneous mass most likely reflecting an inflamed or possibly infected sebaceous cyst. 2. Annual bilateral mammographic screening is recommended unless otherwise clinically indicated. ASSESSMENT: BI-RADS Category 2: Benign
== END ==
PROVIDERS: PCP Nurse Practitioner Family; Visit Provider Physician Assistant
DX: N64.9 Disorder of breast, unspecified (principal)
CPT/HCPCS: 76641; 77062; 77066; G0279

== ENCOUNTER → 2022-04-01 14:07 | Outpatient (CLI) | payer OTHER, SELFPAY | PROVIDERS: PCP Emergency Medicine; Visit Provider Nurse Practitioner Family | DX: G47.33 Obstructive sleep apnea (adult) (pediatric) (principal); R53.83 Other fatigue | CPT/HCPCS: 94762 ==

== ENCOUNTER → 2022-09-22 09:15 | Outpatient (CLI) | payer OTHER, SELFPAY ==
[2022-09-22 15:28] LABS: Thyroid Stimulating Hormone 0.73 uIU/mL (0.465-4.68)
== END ==
PROVIDERS: PCP Family Medicine; Visit Provider Family Medicine
DX: E03.9 Hypothyroidism, unspecified (principal)
CPT/HCPCS: 84443

== ENCOUNTER → 2022-10-08 12:32 | Outpatient (CLI) | payer OTHER, SELFPAY | PROVIDERS: PCP Emergency Medicine; Visit Provider Family Medicine | DX: M25.521 Pain in right elbow (principal) ==

== ENCOUNTER → 2022-10-09 12:40 | Outpatient (CLI) | payer OTHER, SELFPAY ==
--- NOTE | 2022-10-09 12:42 | XR_ITS ---
FINAL REPORT CLINICAL HISTORY: elbow pain FINDINGS: 3 views of the right elbow were obtained. There is no acute fracture or dislocation. The joint spaces are intact. There is not soft tissue abnormality. IMPRESSION: No acute fracture Reviewed, Interpreted and Dictated by Matt Marcelino MD Transcribed by Re Arredondo Authenticated and [facility]
== END ==
PROVIDERS: PCP Family Medicine; Visit Provider Orthopaedic Surgery
DX: M25.521 Pain in right elbow (principal)
CPT/HCPCS: 73080

== ENCOUNTER 2022-11-25 06:58 | Outpatient (CLI) | payer OTHER, SELFPAY ==
[2022-11-25] VITALS (7 sets, daily range): BP systolic 104–133; BP diastolic 52–73; PULSE 62–83; RESP 16–18; TEMP 36.4; O2SAT 95–99; BMI 43.5
--- NOTE | 2022-11-25 06:59 | CT_ITS ---
FINAL REPORT TECHNIQUE: Thin section axial images were obtained from skull base to vertex without contrast. Coronal reconstruction images were obtained from the axial data. Exam was performed using dose reduction technique. CLINICAL HISTORY: headache FINDINGS: There is no mass effect or midline shift. There is no hydrocephalus. There is no intracranial hemorrhage. The posterior fossa is without acute abnormality. The basilar cisterns are preserved. The soft tissues are without acute abnormality. No acute osseous abnormality is identified. IMPRESSION: No acute intracranial abnormality. Reviewed, Interpreted and Dictated by Radha Herrera MD Transcribed by Rhiannon Jara Authenticated and [facility]
[2022-11-25 07:56] LABS: HCG Qualitative, Serum Negative (Negative)
[2022-11-25 07:58] LABS: Alanine Aminotransferase 88 U/L (12-78); Albumin Level 3.6 g/dl (3.5-5.0); Albumin/Globulin Ratio 1.3 (1.1-1.8); Alkaline Phosphatase 113 U/L (38-126); Anion Gap 8.9 mEq/L (5-15); Aspartate Amino Transferase 107 U/L (14-36); Blood Urea Nitrogen 10 mg/dl (7-17); Calcium 8.1 mg/dl (8.4-10.2); Carbon Dioxide 27 mmol/L (22.0-30.0); Chloride 105 mmol/L (98-107); Creatinine Clearance Estimated 127 mL/min (50-200); Estimated Glomerular Filt Rate 114 ml/min (>60); GFR (African American) 138 ML/MIN (>60); Globulin 2.7 g/dL (1.3-3.2); Glucose 102 mg/dl (74-100); Potassium 3.9 mmoL/L (3.5-5.1); Sodium 137 mmol/L (136-145); Total Protein,Serum 6.3 g/dl (6.3-8.2)
== END 2022-11-25 09:20 | disposition home or self-care (01) ==
PROVIDERS: PCP Nurse Practitioner Family; Visit Provider Nurse Practitioner Family
DX: R07.89 Other chest pain (principal); K21.9 Gastro-esophageal reflux disease without esophagitis; R51.9 Headache, unspecified; G47.33 Obstructive sleep apnea (adult) (pediatric); E66.9 Obesity, unspecified; Z68.41 Body mass index [BMI] 40.0-44.9, adult
CPT/HCPCS: 70450; 75574; 80053; 84703; Q9967